=== PATIENT | male | born 1965 | race Caucasian/White ===

== ENCOUNTER 2020-08-08 14:26 | Emergency (ER) | payer OTHER ==
[2020-08-08 16:15] LABS: CORONAVIRUS COVID-19 NAA NEGATIVE (NEGATIVE)
--- NOTE | 2020-08-08 16:26 | EDM.PDOC ---
ED HPI GENERAL MEDICAL PROBLEM - General Chief Complaint: Chest Pain Stated Complaint: CHEST PAIN/PRESSURE, ABD TIGHTNESS Time Seen by Provider: 08/08/20 15:10 Source of Information: Reports: Patient, Family History Limitations: Reports: No Limitations - History of Present Illness INITIAL COMMENTS - FREE TEXT/NARRATIVE: 55-year-old male who has had intermittent chest tightness for the last several weeks, had a work-up done at [facility] in [facility] a week and a half ago which was very thorough including a stress test, echocardiogram, and nothing was found. For the 8 hours he has had chest pressure again and was concerned it has something to do with the Covid vaccine he received 2 weeks ago or possibly even Covid infection. No fevers or chills, no pain with breathing, no nausea or vomiting. He also apparently had some runs of SVT and he was concerned about that. He seems to be very anxious. Onset: Gradual (Chest pressure is been for the last 8 h) Associated Symptoms: Reports: No Other Symptoms. Denies: Confusion, Cough, Fever/Chills, Headaches, Loss of Appetite, Nausea/Vomiting, Shortness of Breath, Weakness - Related Data Allergies Allergy/AdvReac Type Severity Reaction Status Date / Time No Known Allergies Allergy Verified 08/08/20 15:02 Home Meds: Home Meds Metoprolol Tartrate 1 tab CHEW ASDIRECTED PRN 08/08/20 [History] Past Medical History Cardiovascular History: Reports: Arrhythmia Social & Family History - Tobacco Use Tobacco Use Status *Q: Never Tobacco User ED ROS GENERAL - Review of Systems Review Of Systems: See Below Constitutional: Denies: Fever, Chills HEENT: Denies: Ear Pain Respiratory: Denies: Shortness of Breath Cardiovascular: Reports: Chest Pain (Pressure sensation, no real pain), Palpitations (Intermittent palpitations) GI/Abdominal: Reports: Other (A fullness or tightness in his right upper quadrant which is waxing and waning) : Reports: No Symptoms Neurological: Reports: No Symptoms Psychiatric: Reports: Anxiety ED EXAM, GENERAL - Physical Exam Exam: See Below Exam Limited By: No Limitations General Appearance: Alert, No Apparent Distress Eye Exam: Bilateral Eye: Normal Inspection Head: Atraumatic Neck: Supple, Non-Tender Respiratory/Chest: Lungs Clear Cardiovascular: Regular Rate, Rhythm. No: Bradycardia, Tachycardia, Extra Beats GI/Abdominal: Soft, Non-Tender, Other (No right upper quadrant tenderness to palpation, no guarding) Extremities: Normal Inspection. No: Pedal Edema Neurological: Alert, Oriented Psychiatric: Anxious Skin Exam: Warm, Dry Course - Vital Signs Last Recorded V/S: Last Vital Signs Temp 97.7 F 08/08/20 15:10 Pulse 63 08/08/20 15:10 Resp 16 08/08/20 15:10 BP 137/77 08/08/20 15:10 Pulse Ox 98 08/08/20 15:10 - Orders/Labs/Meds Orders: Active Orders 24 hr Category Date Time Status Isolation [COMM] Stat Oth 08/08/20 15:24 Ordered Labs: Laboratory Tests 08/08/20 08/08/20 08/08/20 Range/Units 15:24 15:40 15:40 WBC 5.2 (4.5-11.0) K/uL RBC 4.49 (4.30-5.90) M/uL Hgb 13.5 (12.0-15.0) g/dL Hct 40.3 (40.0-54.0) % MCV 90 (80-98) fL MCH 30 (27-31) pg MCHC 34 (32-36) % Plt Count 281 (150-400) K/uL Neut % (Auto) 62 (36-66) % Lymph % (Auto) 24 (24-44) % Schuyler % (Auto) 12 H (2-6) % Eos % (Auto) 1 L (2-4) % Baso % (Auto) 1 (0-1) % Sodium 139 L (140-148) mmol/L Potassium 3.8 (3.6-5.2) mmol/L Chloride 102 (100-108) mmol/L Carbon Dioxide 27 (21-32) mmol/L Anion Gap 13.8 (5.0-14.0) mmol/L BUN 10 (7-18) mg/dL Creatinine 0.9 (0.8-1.3) mg/dL Est Cr Clr Drug Dosing 88.67 mL/min Estimated GFR (MDRD) > 60 (>60) Glucose 106 (74-106) mg/dL Calcium 9.4 (8.5-10.1) mg/dL Troponin I < 0.017 (0.000-0.056) ng/mL Influenza Type A RNA Negative (NEGATIVE) RSV RNA (INAAT) Negative (NEGATIVE) Influenza Type B RNA Negative (NEGATIVE) SARS-CoV-2 RNA (RODNEY) Negative (NEGATIVE) - Re-Assessments/Exams Free Text/Narrative Re-Assessment/Exam: 08/08/20 16:25 Patient was kept on cardiac monitoring for over an hour and remained in normal sinus rhythm. 4+ viral study was done and was negative, CBC BMP and troponin were obtained and were normal and troponin was 0. Patient was reassured. Departure - Departure Time of Disposition: 16:34 Disposition: Home, Self-Care 01 Clinical Impression: Chest pain, atypical - Discharge Information Instructions: Nonspecific Chest Pain, Adult, [id number] Referrals: PCP,None [Primary Care Provider] - Forms: ED Department Discharge Care Plan Goals: Increase activity as tolerated, return anytime if symptoms are worsening or you develop other concerns. No different medications are needed. Sepsis Event Note (ED) - Evaluation Sepsis Screening Result: No Definite Risk - Focused Exam Vital Signs: Vital Signs Temp Pulse Resp BP Pulse Ox 08/08/20 15:10 97.7 F 63 16 137/77 98 08/08/20 15:00 97.7 F 63 16 137/77 98 - My Orders Last 24 Hours: My Active Orders 08/08/20 15:24 Isolation [COMM] Stat - Assessment/Plan Last 24 Hours: My Active Orders 08/08/20 15:24 Isolation [COMM] Stat
== END 2020-08-08 16:34 | disposition home or self-care (01) ==
LOC: JP.ED 14:26
DX: R07.89 Other chest pain (principal); Z20.822 Contact with and (suspected) exposure to COVID-19
CPT/HCPCS: 0241U; 36415; 80048; 84484; 85025; 99284; 99283

== ENCOUNTER 2022-10-18 10:17 | Emergency (ER) | payer OTHER ==
[2022-10-18] MEDS ORDERED: Sodium Chloride 0.9% 10 ML Syringe FLUSH PRN (10:21)
[2022-10-18 10:31] LABS: BASOPHILS ABSOLUTE AUTO 0.04 K/uL (0.00-0.10); BASOPHILS PERCENT AUTO 0.5 % (0.1-1.3); EOSINOPHILS PERCENT AUTO 1.3 % (0.0-5.4); HEMATOCRIT 42.3 % (38.4-49.7); HEMOGLOBIN 14.4 g/dL (12.9-16.9); IMMATURE GRAN PERCENT AUTO 0.3 % (0.0-0.7); LYMPHOCYTES ABSOLUTE AUTO 1.87 K/uL (0.8-3.3); LYMPHOCYTES PERCENT AUTO 23.4 % (11.4-47.7); MEAN CORPUSCULAR VOLUME 88.1 fL (81.4-99.0); MONOCYTES ABSOLUTE AUTO 0.68 K/uL (0.20-0.90); MONOCYTES PERCENT AUTO 8.5 % (3.3-12.6); NEUTROPHILS ABSOLUTE AUTO 5.29 K/uL (1.0-7.6); PLATELET COUNT,PLT 304 K/uL (130-375)
[2022-10-18 10:33] LABS: IMMATURE GRAN ABSOLUTE AUTO 0.02 K/uL (0.00-0.23)
[2022-10-18 10:50] LABS: INR 1.1; PROTHROMBIN TIME 11.2 sec (9.2-10.6); PTT,PARTIAL THROMBOPLSTIN TIME 24.5 sec (21.8-27.3)
[2022-10-18 11:08] LABS: CALCIUM 9.5 mg/dL (8.5-10.1); CREATININE 1.2 mg/dL (0.8-1.3); EST CRCL DRUG DOSING (CG) 62.73 mL/min; MAGNESIUM 1.8 mg/dL (1.8-2.4); POTASSIUM,K 3.7 mmol/L (3.6-5.2); T4 FREE 1.09 ng/dL (0.76-1.46); TSH ULTRASENSITIVE 1.621 uIU/mL (0.358-3.740)
[2022-10-18 11:11] LABS: ANION GAP 15.7 mmol/L (5.0-14.0)
== END 2022-10-18 11:33 | disposition home or self-care (01) ==
LOC: JP.ED 10:17
DX: I48.0 Paroxysmal atrial fibrillation (principal)
CPT/HCPCS: 36415; 80048; 83735; 84439; 84443; 84484; 85025; 85610; 85730; 93005; 99285; J3490